=== PATIENT | female | born 1955 | race Caucasian/White ===

== ENCOUNTER 2016-08-31 08:40 | Emergency (ER) | payer MEDICARE | END 2016-08-31 10:15 | disposition home or self-care (01) | LOC: D.ER 08:40 | DX: M79.645 Pain in left finger(s) (principal) ==

== ENCOUNTER 2017-01-17 11:07 | Emergency (ER) | payer MEDICARE | END 2017-01-17 14:50 | disposition home or self-care (01) | LOC: D.ER 11:07 | DX: L02.415 Cutaneous abscess of right lower limb (principal) ==

== ENCOUNTER 2017-06-23 22:55 | Emergency (ER) | payer MEDICARE | END 2017-06-24 01:30 | disposition home or self-care (01) | LOC: D.ER 22:55 | DX: S52.502A Unspecified fracture of the lower end of left radius, initial encounter for closed fracture (principal); W01.0XXA Fall on same level from slipping, tripping and stumbling without subsequent striking against object, initial encounter; Y93.89 Activity, other specified; Y92.019 Unspecified place in single-family (private) house as the place of occurrence of the external cause ==

== ENCOUNTER 2017-06-24 11:27 | Emergency (ER) | payer MEDICARE | END 2017-06-24 12:40 | disposition home or self-care (01) | LOC: D.ER 11:27 | DX: S52.502A Unspecified fracture of the lower end of left radius, initial encounter for closed fracture (principal); S52.602A Unspecified fracture of lower end of left ulna, initial encounter for closed fracture; W19.XXXA Unspecified fall, initial encounter; Y93.89 Activity, other specified; Y92.019 Unspecified place in single-family (private) house as the place of occurrence of the external cause ==

== ENCOUNTER → 2017-07-26 11:14 | Outpatient (CLI) | payer MEDICARE ==
[~2017-07-26 11:14] MED LIST: HYDROCODONE-APA1 TAB PO
== END | disposition home or self-care (01) ==
LOC: D.US 11:00
DX: R60.0 Localized edema (principal)

== ENCOUNTER 2017-08-01 11:05 | Day surgery (SDC) | payer MEDICARE ==
[2017-07-29 10:34] LABS: HEMATOCRIT 38.7 % (36.0-48.0); HEMOGLOBIN 12.8 g/dL (12-16); MCH 30.8 pg (26.0-34.0); MCHC 33.1 g/dL (31.0-37.0); MEAN PLATELET VOLUME 10.3 fL (7.4-10.4); RBC 4.16 10x6/uL (4.00-5.40); RDW 12.6 % (11.5-14.5); WBC 5.5 10x3/uL (4.8-10.8)
--- NOTE | ~2017-08-01 | OP ---
PATIENT NAME: RODOLFO WOODS MEDICAL RECORD: [id number] LOCATION:[facility] ADMISSION DATE: SURGEON: TERRELL NAIDU MD DATE OF OPERATION: 08/01/2017 PREOPERATIVE DIAGNOSIS: Distal radius fracture with carpal tunnel syndrome. POSTOPERATIVE DIAGNOSIS: Distal radius fracture with carpal tunnel syndrome. PROCEDURES: 1. Open reduction and internal fixation of left distal radius. 2. Left carpal tunnel release. SURGEON: Terrell Naidu MD ANESTHESIA: General. INTRAOPERATIVE COMPLICATIONS: None. SUMMARY OF PATHOLOGIC FINDINGS: The patient had a comminuted distal radius fracture with loss of volar tilt with comminution on the dorsal aspect partially intraarticular. OPERATIVE SUMMARY IN DETAIL: After obtaining the appropriate preoperative orthopedic surgery consent as well as anesthetic consultation, evaluation clearance, the patient was brought to the operating room and placed on the operating table in supine position. After general laryngeal mask was administered, tourniquet was placed about the proximal aspect of the left lower extremity. Left upper extremity was prepped and draped in routine sterile fashion. The arm was elevated and exsanguinated, tourniquet inflated to 250 mmHg. Curvilinear incision was made in keeping with Den's volar approach into the palmar aspect of carpal tunnel, carpal tunnel was released first. Under direct visualization of the median nerve, carpal tunnel was released using the aid of the light knife. Flexor carpi radialis was used as a landmark and dissection was carried down to the fracture itself. Fracture was reduced as seen on fluoroscopy. Julisa VariAx plate was then put into place with the olive wires. When it was felt that the appropriate position, serial and sequential drill and fill technique was used distally followed by using the plate as a lever mechanism to re-create the patient's volar tilt. Having completed this and after all screw holes were filled with a combination of both compression and locking screws, wound was copiously irrigated and closed with 3-0 Vicryl followed by 4-0 Prolene in a running fashion. Sterile dressings were applied. Tourniquet was deflated. The patient was awakened, taken to recovery in stable condition. All final needle and sponge counts were correct. TRANSINT:[id number] Voice Confirmation ID: [id number] DOCUMENT ID: [id number] OPERATIVE REPORT [id number] RODOLFO WOODS ELYSIA BRICENO, TERRELL WEISS at 0827 CC: [id number] DICTATION DATE: 08/03/171819 SCHOOL CLERK: 08/[id number] [facility] 08/01/17 [id number] [place] [address]
[2017-08-01 11:49] VITALS: BP 143/69; BMI 29.1
[2017-08-01] MEDS ORDERED: HYDROCODONE-APA1 TAB PO (15:08)
== END 2017-08-01 17:05 | disposition home or self-care (01) ==
LOC: D.OPS 11:05 → D.PAN 13:30 → D.OPS 13:30
PROVIDERS: Anesthesiology
DX: S52.502A Unspecified fracture of the lower end of left radius, initial encounter for closed fracture (principal); M79.662 Pain in left lower leg; M25.522 Pain in left elbow; T14.8XXA Other injury of unspecified body region, initial encounter; G56.02 Carpal tunnel syndrome, left upper limb; Z01.812 Encounter for preprocedural laboratory examination

== ENCOUNTER → 2018-05-31 19:23 | Outpatient (CLI) | payer MEDICARE | END | disposition home or self-care (01) | LOC: D.MAMMO 14:15 | DX: Z12.31 Encounter for screening mammogram for malignant neoplasm of breast (principal) ==